=== PATIENT | female | born 1995 | race Caucasian/White ===

== ENCOUNTER → 2016-09-12 | Outpatient (CLI) | payer BC | LOC: LC 11:30 | PROVIDERS: ATTEND Obstetrics & Gynecology | PROC: 4A1HXCZ Monitoring of Products of Conception, Cardiac Rate, External Approach (ICD-10-PCS; principal; 2016-09-12) | DX: O24.419 Gestational diabetes mellitus in pregnancy, unspecified control (principal); Z3A.34 34 weeks gestation of pregnancy | CPT/HCPCS: 59025 ==

== ENCOUNTER 2016-10-11 14:41 | Outpatient (CLI) | payer BC ==
[2016-10-11] MEDS ORDERED: RINGERS SOLUTION,LACTATED 2,000 ML IV ONE (14:50)
[2016-10-11 15:30] LABS: APPEARANCE,URINE SLIGHTLY-CLOUDY; BILIRUBIN,URINE NEGATIVE (NEGATIVE); GLUCOSE, URINE NEGATIVE (NEGATIVE); KETONES,URINE NEGATIVE (NEGATIVE); LEUKOCYTE ESTERASE,URINE SMALL (NEGATIVE); NITRITE,URINE NEGATIVE (NEGATIVE); PROTEIN,URINE 30 mg/dL (NEGATIVE); URINE SPECIFIC GRAVITY 1.021; UROBILINOGEN,URINE NEGATIVE mg/dL (<2.0)
[2016-10-11] MEDS ORDERED: RINGERS SOLUTION,LACTATED 1,000 ML IV PRN (15:32)
[2016-10-11 15:46] LABS: URINE BARBITURATES SCREEN NEGATIVE; URINE METHADONE SCREEN NEGATIVE; URINE OPIATES LOW NEGATIVE; URINE PHENCYCLIDINE SCREEN NEGATIVE
--- NOTE | 2016-10-11 20:33 | Non Stress Test Report ---
Non Stress Test Datetime Report Generated by CPN: 10/11/2016 20:33 DEMOGRAPHIC Test Number: 2 EGA NST: 38.5 INDICATION Indication for Study: Ordered by Provider Indication for Study: Diabetes Mellitus; Ordered by Provider MONITORING Monitor Explained: Monitor Explained; Test Explained; Patient Verbalized Understanding Time on Monitor: 10/11/2016 15:00 Time on Monitor: 09/12/2016 12:00 Time off Monitor: 10/11/2016 15:37 NST Duration: 37 NST INTERVENTIONS NST Interventions: PO Hydration; Reposition Patient Physician Notified NST: Dr. Augustine BABY A: [id number] BABY A Movement : Present Contraction Frequency : none FHR Baseline : 135 Accelerations : 15X15 Decelerations : None Variability : Moderate 6-25bpm NST Review: Meets Criteria for Reactive NST NST Review and Verified By : Renata Messer RN NST Results: Reactive NST REPORT Report Trigger: Send Report
--- NOTE | 2016-10-11 20:43 | RADIOLOGY REPORT (SQ) ---
EXAM DESCRIPTION: U/S OB LIMITED COMPLETED DATE/TIME: 10/11/2016 8:19 pm REASON FOR STUDY: ENRIQUETA COMPARISON: None. TECHNIQUE: Limited transabdominal grayscale ultrasound for evaluation of specific requested obstetri laura parameters. LIMITATIONS: None. FINDINGS: ENRIQUETA: 9.5 cm. FHR: 153 beats per minute. PRESENTATION: Cephalic. OTHER: Anterior grade 1 placenta. IMPRESSION: LIMITED OBSTETRICAL ULTRASOUND WITH MEASURED PARAMETERS DELINEATED ABOVE. Trimester of : Third trimester - 28 weeks to delivery. TECHNICAL DOCUMENTATION: JOB ID: [id number] [employer]- All Rights Reserved
== END 2016-10-11 20:55 | disposition home or self-care (01) ==
LOC: LC 14:41
PROVIDERS: ATTEND Obstetrics & Gynecology
PROC: 4A1HXCZ Monitoring of Products of Conception, Cardiac Rate, External Approach (ICD-10-PCS; principal; 2016-10-11)
DX: O24.119 Pre-existing type 2 diabetes mellitus, in pregnancy, unspecified trimester (principal); Z3A.38 38 weeks gestation of pregnancy
CPT/HCPCS: 59025; 76815; 80307; 81005

== ENCOUNTER 2016-10-12 19:51 | Inpatient (IN) | payer BC ==
[2016-10-12] MEDS ORDERED: RINGERS SOLUTION,LACTATED 1,000 ML IV PRN (20:28)
[2016-10-12] MEDS ORDERED: RINGERS SOLUTION,LACTATED 300 ML IV ONE (20:28)
[2016-10-12] MEDS ORDERED: MISOPROSTOL 0.2 MG TABLET ONE (20:33)
[2016-10-12] MEDS ORDERED: LIDOCAINE 1% INJ-PF (10 MG/ML) 30 ML SDV ONE (20:33)
[2016-10-12] MEDS ORDERED: OXYTOCIN/NORMAL SALINE 20 UNIT/1,000 ML RTUINJ ONE (20:33)
[2016-10-12 20:35] LABS: APPEARANCE,URINE SLIGHTLY-CLOUDY; BILIRUBIN,URINE NEGATIVE (NEGATIVE); GLUCOSE, URINE NEGATIVE (NEGATIVE); KETONES,URINE NEGATIVE (NEGATIVE); LEUKOCYTE ESTERASE,URINE TRACE (NEGATIVE); NITRITE,URINE NEGATIVE (NEGATIVE); PROTEIN,URINE NEGATIVE (NEGATIVE); URINE SPECIFIC GRAVITY 1.015; UROBILINOGEN,URINE NEGATIVE mg/dL (<2.0)
[2016-10-12 20:54] LABS: URINE BARBITURATES SCREEN NEGATIVE; URINE METHADONE SCREEN NEGATIVE; URINE OPIATES LOW NEGATIVE; URINE PHENCYCLIDINE SCREEN NEGATIVE
[2016-10-12 21:30] LABS: HEMATOCRIT 32.9 % (36.0-47.0); HEMOGLOBIN 10.6 g/dL (12.0-15.5); HGB HCT DIFFERENCE -1.1; MEAN CORPUSCULAR HEMOGLOBIN 27.2 pg (27.0-33.4); MEAN CORPUSCULAR HGB CONC 32.2 g/dL (32.0-36.0); MEAN CORPUSCULAR VOLUME 84 fl (80-97); RED BLOOD COUNT 3.91 10^6/uL (3.72-5.28); RED CELL DISTRIBUTION WIDTH 14.2 % (11.5-14.0); WHITE BLOOD COUNT 12.4 10^3/uL (4.0-10.5)
[2016-10-13] MEDS ORDERED: MORPHINE SULFATE 10 MG/ML INJ ONE (00:41)
[2016-10-13] MEDS ORDERED: PROMETHAZINE HCL 25 MG TABLET PO PRN (00:55)
[2016-10-13] MEDS ORDERED: ACETAMINOPHEN WITH CODEINE #3 TABLET PO PRN (00:55)
[2016-10-13] MEDS ORDERED: DIPH/PERTUSS(ACELL)/TETANUS VAC/PF 0.5 ML SYR (>=10YO) IM PRN (00:55)
[2016-10-13] MEDS ORDERED: OXYTOCIN/NORMAL SALINE 1,000 ML IV PRN (00:55)
[2016-10-13] MEDS ORDERED: ZOLPIDEM TARTRATE 5 MG TABLET PO PRN (00:55)
[2016-10-13] MEDS ORDERED: PSEUDOEPHEDRINE HCL 30 MG TABLET PO PRN (00:55)
[2016-10-13] MEDS ORDERED: MEASLES,MUMPS&RUBELLA VACC/PF 0.5 ML VIAL SUBCUT PRN (00:55)
[2016-10-13] MEDS ORDERED: PROMETHAZINE HCL 25 MG SUPP.RECT PR PRN (00:55)
[2016-10-13] MEDS ORDERED: BENZOCAINE/MENTHOL AEROSOL SPRAY 56 ML TOP PRN (00:55)
[2016-10-13] MEDS ORDERED: ACETAMINOPHEN 650 MG SUPP.RECT PR PRN (00:55)
[2016-10-13] MEDS ORDERED: MAGNESIUM HYDROXIDE SUSP 30 ML UDCUP PO PRN (00:55)
[2016-10-13] MEDS ORDERED: DIBUCAINE 1% OINTMENT 28 GM TP PRN (00:55)
[2016-10-13] MEDS ORDERED: NA PHOS,M-B/NA PHOS,DI-BA (ADULT) 133 ML ENEMA PR PRN (00:55)
[2016-10-13] MEDS ORDERED: DIPHENHYDRAMINE HCL 25 MG CAPSULE PO PRN (00:55)
[2016-10-13] MEDS ORDERED: GLYCERIN/WITCH HAZEL LEAF 1 EACH MED..PAD TP PRN (00:55)
[2016-10-13] MEDS ORDERED: PROMETHAZINE HCL INJ 25 MG/1 ML VIAL IV PRN (00:55)
--- NOTE | 2016-10-13 02:45 | Admission Physical ---
Datetime Report Generated by CPN: 10/13/2016 02:45 CURRENT ADMISSION Hx Assessment: The History has been Reviewed and is Current Chief Complaint: Uterine Contractions Indication for Induction: Not Applicable Admit Plan: Admit to Unit; Initiate Labor Protocol ALLERGIES Medication Allergies: No Medication Allergies: No Known Allergies (10/11/2016) Medication Allergies: No Known Allergies (09/12/2016) Medication Allergies: No Known Allergies (09/20/2014) Latex: No Latex Allergies OBSTETRICAL HISTORY EDC: 10/20/2016 00:00 : 1 Para: 0 Term: 0 : 0 SAB: 0 IAB: 0 Ectopic: 0 Livin Cesareans: 0 VBACs: 0 Multiple Births: 0 Gestational Diabetes: Yes Rh Sensitization: No Incompetent Cervix: No SHEILA: No Infertility: No ART Treatment: No Uterine Anomaly: No IUGR: No Hx Previous C/S: No Macrosomia: No Hx Loss/Stillborn: No PIH: No Hx : No Placenta Previa/Abruption: No Depression/PP Depression: No PTL/PROM: No Post Hemorrhage: No Current Procedures: Ultrasound; NST Obstetrical History Comments: G1- GDM, denies complications SEE RECORDS Alcohol: No Marijuana : No Cocaine: No Other Illicit Drugs: No Cigarettes: Never Smoker. [id number] MEDICAL HISTORY Diabetes: Yes Diabetes Type: Gestational Diabetes Blood Transfusion: No Pulmonary Disease (Asthma, TB): No Breast Disease: No Hypertension: No Clinical Support Nurse Surgery: No Heart Disease: No Hosp/Surgery: No Autoimmune Disorder: No Anesthetic Complications: No Kidney Disease: No Abnormal Pap Smear: No Neuro/Epilepsy: No Psychiatric Disorders: No Other Medical Diseases: No Hepatitis/Liver Disease: No Significant Family History: No Varicosities/Phlebitis: No Trauma/Violence : No Thyroid Dysfunction: No INFECTIOUS HISTORY Gonorrhea: No Genital Herpes: No Chlamydia: No Tuberculosis: No Syphilis: No Hepatitis: No HIV/AIDS Exposure: No Rash or Viral Illness: No HPV: No PHYSICAL EXAM General: Normal HEENT: Deferred Neurologic: Normal Thyroid: Deferred Heart: Normal Lungs: Normal Breast: Deferred Back: Normal Abdomen: Normal Genitourinary Exam: Normal Extremities: Normal DTRs: Normal Pelvic Type: Adequate Vital Signs: Reviewed; Within Normal Limits VAGINAL EXAM Dilatation: 7 Effacement: 100 Station: 0 MEMBRANES Membranes: Bulging FETUS A EGA: 38.6 Monitoring: External US FHR- Baseline: 140 Estimated Weight (gm): 3300 Presentation: Vertex Admit Comment: 20yo @ 38w6d into L_D with UC since last night. A pos, Rubella Immune, GBS neg. complicated by GDM diet controlled otherwise unremarkable. Reports +FM today, denies LOF/bleeding or other concerns. Found to be 7cm by RN exam will be admitted into unit. Desires natural labor and AROM at this time. Dr. Prather in unit and aware of admission/plan. PLANS FOR LABOR AND DELIVERY Labor and Delivery: None Pain Management: Natural Feeding Preference: Both Benefit of Breast Feed Discussed: Yes Circumcision: Yes INFORMED CONSENT Assignment: Meeta Prather MD Signature: with User ID: Radha : with User ID: [email or web address]
--- NOTE | 2016-10-13 02:58 | Delivery Summary ---
Del Sum A-C Datetime Report Generated by CPN: 10/13/2016 02:58 DELIVERY PERSONNEL DELIVERY PERSONNEL: [id number] Delivery Doctor:: Elizabeth Bell CNM Nurse Toddler Guide Certified:: Elizabeth Bell CNM Labor and Delivery Nurse:: Amira Messer RN Nursery Nurse:: Rola Rivas RN Compounding Technician/EMILY: Aurea Gonzalez CNA MATERNAL INFORMATION Delivery Anesthesia: None Medications After Delivery: Pitocin Drip 20 Units/1000ml NSS Estimated Blood Loss (ml): 300 Maternal Complications: None Provider Comments: Pt. progressed to c/c/0 with urge to push and with much coaching went on to deliver a viable baby boy. Baby placed on maternal abdomen (nursery in room for delivery). Vigorous respiratory effort and Cry with tactile stimulation. Cord allowed to stop pulsating then clamped x2 and cut by FOB. Placenta delivered spontaneously intact (cortez, 3vc noted). Large amount of bleeding noted and fundus boggy. several clots expressed with fundal exam and fundus firm with massage and bleeding stable. FF @ U-1. Vaginal and perineal inspection revealed a small abrasion as noted before. Mother and baby remain skin to skin, bonding and stable, LABOR SUMMARY EDC: 10/20/2016 00:00 No. Babies in Womb: 1 Attempted: No Labor Anesthesia: None LABOR INFORMATION Reason for Induction: Not Applicable Onset of Labor: 10/12/2016 18:00 Complete Dilatation: 10/12/2016 21:41 Oxytocin: N/A Group B Beta Strep: negative Antibiotics # of Doses: 0 Steroids Given: None Reason Steroids Not Administered: Not Applicable MEMBRANES Membranes Rupture Method: Artificial Rupture of Membranes: 10/12/2016 20:53 Length of Rupture (hr): 3.57 Amniotic Fluid Color: Clear Amniotic Fluid Amount: Small Amniotic Fluid Odor: Normal STAGES OF LABOR Stage 1 hr: 3 Stage 1 min: 41 Stage 2 hr: 2 Stage 2 min: 46 Stage 3 hr: 0 Stage 3 min: 8 Total Time in Labor hr: 6 Total Time in Labor min: 35 VAGINAL DELIVERY Episiotomy: None Laceration Extension: N/A Laceration Type: None Other Laceration: vaginal abrasion hemostatic Laceration Repair: Not Applicable Laceration Repair Note: N/A Sponge Count Correct: N/A Sharps Count Correct: Yes CSECTION DELIVERY Primary Indication: N/A Secondary Indication: N/A CSection Incidence: N/A Labor: N/A Elective: N/A CSection Incision: N/A BABY A INFORMATION Infant Delivery Date/Time: 10/13/2016 00:27 Method of Delivery: Vaginal Born in Route : No : N/A Forceps: N/A Vacuum Extraction: N/A Shoulder Dystocia : No PRESENTATION/POSITION BABY A Presentation: Cephalic Cephalic Presentation: Vertex Breech Presentation: N/A PLACENTA INFORMATION BABY A Placenta Delivery Time : 10/13/2016 00:35 Placenta Method of Delivery: Spontaneous Placenta Status: Delivered SCORES BABY A Heart Rate 1 min: >100 bpm Resp Effort 1 min: Slow, Irregular Reflex Irritability 1 min: Cough or Sneeze or Pulls Away Muscle Tone 1 min: Active Motion Color 1 min: Blue/Pale Resuscitation Effort 1 min: Tactile Stimulation SCORE 1 MIN: 7 Heart Rate 5 min: >100 bpm Resp Effort 5 min: Good Cry Reflex Irritability 5 min: Cough or Sneeze or Pulls Away Muscle Tone 5 min: Active Motion Color 5 min: Body Antares, Extremities Blue Resuscitation Effort 5 min: Tactile Stimulation SCORE 5 MIN: 9 INFORMATION BABY A Gestational Age at Delivery: 39.0 Gestational Status: Full Term- 39- 40.6 Weeks Infant Outcome : Liveborn Infant Condition : Stable Infant Sex: Male IDENTIFICATION BABY A Infant Verification Date/Time: 10/13/2016 01:02 ID Band Number: [id number] Mother's Name Verified: Yes Infant RN Verifying Infant: SNaz Jean Baptistetibisraelir, RN _ R. Jackson, RN WEIGHT/LENGTH BABY A Birthweight (gm): 3280 Infant Weight (lb): 7 Weight (oz): 4 Infant Length (in): 20.50 Infant Length (cm): 52.07 CORD INFORMATION BABY A No. Cord Vessels: 3 Nuchal Cord : N/A Cord Blood Taken: Yes-For Storage (Mom's Blood type +) Infant Suction: Mouth; Nose ASSESSMENT BABY A Complications: Multiple Variable Decels Physical Findings at Delivery: Caput Succedaneum; Molding of the Head Infant Respirations: Appears Normal Real Property Evaluator/ALS Called : No Infant Care By: RjNaz Curtis, RN Transferred To: Remains with Mother BABY B INFORMATION : N/A SIGNATURES Assignment: Meeta Prather MD Signature: with User ID: Radha : with User ID: [email or web address]
[2016-10-13] MEDS: IBUPROFEN 800 MG TABLET PO SCH ×3 (05:29→22:34)
[2016-10-13] MEDS: ACETAMINOPHEN WITH CODEINE #3 TABLET PO PRN (05:30)
[2016-10-13] MEDS: DOCUSATE SODIUM 100 MG CAPSULE PO SCH ×2 (10:32→18:10)
[2016-10-13] MEDS: FERROUS SULFATE 325 MG TABLET PO SCH ×2 (10:32→18:10)
[2016-10-13] MEDS: FAMOTIDINE 20 MG TABLET PO SCH ×2 (10:32→22:34)
[2016-10-13] MEDS: SENNOSIDES/DOCUSATE 8.6-50 MG 1 EACH TABLET PO SCH (10:32)
[2016-10-13] MEDS: PRENATAL VITAMIN W-O CA NO5/FE FUMARATE/FA CAPSULE PO SCH (10:32)
[2016-10-14] MEDS: ACETAMINOPHEN WITH CODEINE #3 TABLET PO PRN ×2 (05:31→13:55)
[2016-10-14] MEDS: IBUPROFEN 800 MG TABLET PO SCH ×3 (05:32→22:02)
[2016-10-14 07:34] LABS: HEMATOCRIT 27.1 % (36.0-47.0); HEMOGLOBIN 8.8 g/dL (12.0-15.5); HGB HCT DIFFERENCE -0.7; MEAN CORPUSCULAR HGB CONC 32.4 g/dL (32.0-36.0); MEAN CORPUSCULAR VOLUME 84 fl (80-97); RED BLOOD COUNT 3.25 10^6/uL (3.72-5.28); RED CELL DISTRIBUTION WIDTH 14.2 % (11.5-14.0); WHITE BLOOD COUNT 9.7 10^3/uL (4.0-10.5)
--- NOTE | 2016-10-14 09:30 | PDOC PROGRESS REPORT ---
Subjective-OB Subjective: Post Delivery Day: 1 20 year old. Denies any needs at this time, lochia is stable, pain well controlled, voiding without difficulty. Physical Exam (OB) Vital Signs: Temp Pulse Resp BP Pulse Ox 98.3 F 84 16 122/81 100 10/14/16 08:24 10/14/16 08:24 10/14/16 08:24 10/14/16 08:24 10/14/16 08:24 Intake & Output 10/13/16 10/14/16 10/15/16 06:59 06:59 06:59 Weight 93.55 kg - PIH/Pre-Eclampsia Clonus: Negative Headache: Absent Epigastric Pain: No Visual Changes: No - Lochia Lochia Amount: Scant < 10 ml Lochia Color: Rubra/Red - Abdomen Description: Soft, Round Hernia Present: No Fundal Description: Firm Fundal Height: u/u - u/2 Objective-Diagnostic Laboratory: 10/14/16 07:25 10/14/16 07:25 WBC 9.7 RBC 3.25 L Hgb 8.8 L Hct 27.1 L MCV 84 MCH 27.0 MCHC 32.4 RDW 14.2 H Plt Count 225 Assessment and Plan(PN) - Assessment and Plan (1) Vaginal delivery Is this a current diagnosis for this admission?: YesPlan: routine pp care (2) Acute blood loss anemia Is this a current diagnosis for this admission?: YesPlan: ferrous sulfate increase dietary iron - Time Spent with Patient Time with patient: Less than 15 minutes Critical Time spent with patient: Less than 15 minutes Medications reviewed and adjusted accordingly: Yes - Disposition Anticipated Discharge: Home Within: within 24 hours
[2016-10-14] MEDS: SENNOSIDES/DOCUSATE 8.6-50 MG 1 EACH TABLET PO SCH (10:44)
[2016-10-14] MEDS: DOCUSATE SODIUM 100 MG CAPSULE PO SCH ×2 (10:44→17:23)
[2016-10-14] MEDS: FERROUS SULFATE 325 MG TABLET PO SCH ×2 (10:44→17:23)
[2016-10-14] MEDS: PRENATAL VITAMIN W-O CA NO5/FE FUMARATE/FA CAPSULE PO SCH (10:44)
[2016-10-14] MEDS: FAMOTIDINE 20 MG TABLET PO SCH ×2 (10:45→22:02)
[2016-10-15] MEDS: IBUPROFEN 800 MG TABLET PO SCH (06:00)
[2016-10-15 08:24] VITALS: BP 134/83
[2016-10-15] MEDS: FERROUS SULFATE 325 MG TABLET PO SCH (09:15)
[2016-10-15] MEDS: SENNOSIDES/DOCUSATE 8.6-50 MG 1 EACH TABLET PO SCH (09:15)
[2016-10-15] MEDS: DOCUSATE SODIUM 100 MG CAPSULE PO SCH (09:15)
[2016-10-15] MEDS: PRENATAL VITAMIN W-O CA NO5/FE FUMARATE/FA CAPSULE PO SCH (09:15)
--- NOTE | 2016-10-15 09:30 | PDOC DISCHARGE SUMMARY ---
Final Diagnosis Discharge Date: 10/15/16 - Final Diagnosis (1) Vaginal delivery Is this a current diagnosis for this admission?: Yes (2) Acute blood loss anemia Is this a current diagnosis for this admission?: Yes Discharge Data - Discharge Medication Home Medications: Pnv No.122/Iron/Folic Acid [ Multi Tablet] 1 tab PO DAILY 10/11/16 Docusate Sodium [Colace 100 mg Capsule] 100 mg PO BID #60 capsule 10/15/16 Ferrous Sulfate [Feosol 325 mg Tablet] 325 mg PO BID #60 tablet 10/15/16 Ibuprofen [Motrin 800 mg Tablet] 800 mg PO Q8 #60 tablet 10/15/16 Gestational Age: 39 Reason(s) for Admission: Onset of Labor Procedures: NST Intrapartum Procedure(s): Spontaneous Vaginal Delivery - Data Baby 1 Male at 1 minute: 7 at 5 minutes: 9 Weight: 3258 kg Home with Mother: Yes Complications: No - Diagnosis Test Laboratory: Temp Pulse Resp BP Pulse Ox 98.2 F 77 16 134/83 H 100 10/15/16 07:51 10/15/16 07:51 10/15/16 07:51 10/15/16 07:51 10/15/16 07:51 10/12/16 10/12/16 10/14/16 20:10 21:09 07:25 RBC 3.91 3.25 L Hgb 10.6 L 8.8 L Hct 32.9 L 27.1 L Urine Opiates Screen NEGATIVE - Discharge information/Instructions Discharge Activity: Activity As Tolerated, Pelvic Rest, No tub bath Discharge Diet: Regular Disposition: HOME, SELF-CARE Follow up with: [facility] in: 4, Weeks
[2016-10-15] MEDS: FAMOTIDINE 20 MG TABLET PO SCH (12:15)
== END 2016-10-15 12:42 | disposition home or self-care (01) | DRG 775 ==
LOC: LC 19:51 → LR 20:30 → 2S 10-13 02:42
PROVIDERS: ADMIT Student in an Organized Health Care Education/Training Program; ATTEND Student in an Organized Health Care Education/Training Program
PROC: 10E0XZZ Delivery of Products of Conception, External Approach (ICD-10-PCS; principal; 2016-10-13)
PROC: 4A1HXCZ Monitoring of Products of Conception, Cardiac Rate, External Approach (ICD-10-PCS; 2016-10-13)
DX: O76 Abnormality in fetal heart rate and rhythm complicating labor and delivery (principal); D62 Acute posthemorrhagic anemia; O24.420 Gestational diabetes mellitus in childbirth, diet controlled; O99.02 Anemia complicating childbirth; O70.0 First degree perineal laceration during delivery; Z3A.39 39 weeks gestation of pregnancy; Z37.0 Single live birth
CPT/HCPCS: 36415; 80307; 81005; 85027; 86592; 86850; 86900; 86901; J2270; J2590; J3490